=== PATIENT | male | born 1965 | race Caucasian/White ===

== ENCOUNTER 2017-03-24 23:26 | Emergency (ER) | payer MEDICAID ==
[2017-03-24] MEDS ORDERED: Ativan 2 MG/1 ML VIAL ONE (23:40)
[2017-03-24] MEDS ORDERED: Keppra 500 MG/5 ML ONE (23:41)
[2017-03-24] MEDS ORDERED: Sodium Chloride 0.9% 100 ML IVPB 100 ML IV ONE (23:41)
[2017-03-24] MEDS ORDERED: Sodium Chloride 0.9% 1000 ML 1,000 ML IV STA (23:44)
[2017-03-24] MEDS ORDERED: Sodium Chloride 0.9% 1000 ML 1,000 ML ONE (23:49)
[2017-03-24 23:58] LABS: Mean Cell Volume 81.1 fl (78-100); Mean Corpuscular Hemoglobin 24.8 pg (26-32); Platelet Count 472 K/mm3 (150-450); Red Blood Count 5.28 M/mm3 (4.1-5.6); Red Cell Distribution Width 20.7 % (11.5-14.0); White Blood Count 11.2 K/mm3 (4.0-10.5)
--- NOTE | 2017-03-24 23:59 | ERPHSYRPT ---
- History of Present Illness Time Seen by Provider: 03/24/17 23:40 Source: family, EMS Patient Subjective Stated Complaint: PT BROUGHT TO ED PER EMS FROM HOME-HOSPICE PT-EMS REPORTS CALLED TO SCENE FOR SYNCOPAL EPISODE POSSIBLE SEIZURE-EMS ARRIVED TO SCENE WITH PT NOT RESPONDING PT WOKE UP WHEN THEY PICKED HIM UP-PT ALERT X1 FOR EMS Triage Nursing Assessment: PT ARRIVED TO ED CONFUSED-ALERT TO SELF ONLY- FOLLOWING SIMPLE COMMANDS-RESP NONLABORED-JITTERY MOVEMENTS NOTED THROUGHOUT TRIAGE-MOVING ALL EXTREMITIES RESTLESS-PT UNABLE TO ANSWER QUESTIONS FOR TRIAGE Physician History: EMS CALLED TO HOSPICE FOR EVALUATION OF PATIENT WITH STAGE 4 PULMONARY CARCINOMA , PERIPHERAL VASCULAT OCCULSIVE DISEASE, WITH CONFUSION AND SEIZURE LIKE ACTIVITY. NO HISTORY OF COUGH, EMESIS OR DIARRHEA. Timing/Duration: today Severity: severe Character of Deficits: general (difuse) Deficits: decrease ability to stand Baseline/Normal Cognition: poor alertness Current Cognition: poor alertness Associated Symptoms: confusion, slurred speech Home Medications: Atorvastatin Calcium [Lipitor] 20 mg PO DAILY 03/25/17 [History] Duloxetine HCl 30 mg [Cymbalta 30 MG Capsule] 30 mg PO DAILY 03/25/17 [ History] Furosemide 20 mg [Lasix 20 mg] 20 mg PO DAILY 03/25/17 [History] Hydrocodone Bit/Acetaminophen [Hydrocodon-Acetaminophen 5-325] 1 each PO UD 01/06 [History] Magnesium 400 mg PO DAILY 03/25/17 [History] Metoprolol Tartrate 25 mg [Lopressor 25MG Tab] 25 mg PO BID 03/25/17 [ History] Morphine Sulfate Cr 30 mg [Ms Contin 30 mg] 30 mg PO BID 03/25/17 [History ] Pantoprazole 40 mg [Protonix 40 mg IV] 40 mg PO DAILY 03/25/17 [History] Warfarin Sodium 2.5 mg [Coumadin 2.5 MG] 2.5 mg PO DAILY 03/25/17 [History ] Hx Tetanus, Diphtheria Vaccination/Date Given: No Hx Influenza Vaccination/Date Given: No Hx Pneumococcal Vaccination/Date Given: No Immunizations Up to Date: No - Review of Systems Constitutional: Weakness, No Fever, No Chills Eyes: No Symptoms Ears, Nose, & Throat: No Symptoms Respiratory: No Symptoms, No Cough, No Dyspnea Cardiac: No Symptoms, No Chest Pain, No Edema, No Syncope Abdominal/Gastrointestinal: No Symptoms, No Abdominal Pain, No Nausea, No Vomiting, No Diarrhea Genitourinary Symptoms: No Symptoms, No Dysuria Musculoskeletal: No Symptoms, No Back Pain, No Neck Pain Skin: No Rash Neurological: Lethargy, Seizure, Other (CONFUSION), No Dizziness, No Focal Weakness, No Sensory Changes Psychological: No Symptoms Endocrine: No Symptoms All Other Systems: Reviewed and Negative - Past Medical History Pertinent Past Medical History: Yes Respiratory History: Lung Cancer Other Medical History: STAGE 4 LUNG CANCER - Past Surgical History Past Surgical History: No - Social History Smoking Status: Unknown if ever smoked Drug Use: none - Nursing Vital Signs Nursing Vital Signs: Initial Vital Signs Temperature 98.1 F Temperature Source Axillary Pulse Rate 88 Respiratory Rate 18 Blood Pressure [] 117/83 Pain Intensity 0 - Lucía Coma Scale Best Eye Response ([place]): (4) open spontaneously Best Verbal Response (Lucía): (4) confused conversation Best Motor Response (Lucía): (5) localizes to pain Lucía Total: 13 - Physical Exam General Appearance: lethargy, cachetic (MALNOURISHED) Eye Exam: bilateral eye: normal inspection, PERRL, EOMI Ears, Nose, Throat Exam: normal ENT inspection, dry mucous membranes Neck Exam: normal inspection, non-tender, supple Respiratory: normal breath sounds, lungs clear, airway intact, No respiratory distress Cardiovascular: regular rate/rhythm, No edema Gastrointestinal: soft, normal bowel sounds, No tenderness, No distention Back Exam: normal inspection Peripheral Pulses: carotid (R): 2+, carotid (L): 2+, femoral (R): 2+, femoral (L ): 2+, dorsalis-pedis (R): 1+, dorsalis-pedis (L): 1+ Mental Status: lethargy, other (CONFUSED) DTR: bicep (R): 2+, bicep (L): 2+, tricep (R): 2+, tricep (L): 2+, knee (R): 2+ , knee (L): 2+, ankle (R): 2+, ankle (L): 2+ Skin Exam: normal color SpO2 Interpretation: normal SpO2: 97 Oxygen Delivery: Room Air - Course EKG Interpreted by Me: RATE, Sinus Rhythm, Sinus Tach, NORMAL AXIS - Radiology Exams Chest X-ray Interpretation: Interpreted by me (there is a right upper lobe consolidiation vs infiltrase) - CT Exams Head CT Interpretation: Tele-radiologist Report, No/Intracranial Hemorrhag Ordered Tests: Medication Summary Discontinued Medications Generic Name Dose Route Start Last Admin Trade Name Freq PRN Reason Stop Dose Admin Sodium Chloride Confirm 03/24/17 23:41 Sodium Chloride 0.9% 100 Ml Ivpb Administered 03/24/17 23:42 Dose 100 mls @ ud IV .STK-MED ONE Sodium Chloride 1,000 mls @ 999 mls/hr 03/24/17 23:44 03/24/17 23:49 Sodium Chloride 0.9% 1000 Ml IV 03/25/17 00:44 999 mls/hr .Q1H1M STA Administration Sodium Chloride Confirm 03/24/17 23:49 Sodium Chloride 0.9% 1000 Ml Administered 03/24/17 23:50 Dose 1,000 mls @ ud .ROUTE .STK-MED ONE Sodium Chloride Confirm 03/25/17 00:59 Sodium Chloride 0.9% 1000 Ml Administered 03/25/17 01:00 Dose 1,000 mls @ ud .ROUTE .STK-MED ONE Sodium Chloride 1,000 mls @ 500 mls/hr 03/25/17 01:05 03/25/17 01:07 Sodium Chloride 0.9% 1000 Ml IV 03/25/17 03:04 500 mls/hr .Q2H STA Administration Levofloxacin/Dextrose 500 mg in 100 mls @ 100 mls/hr 03/25/17 01:51 03/25/17 01:55 Levofloxacin 500mg/100ml D5w IV 03/25/17 02:50 100 mls/hr STAT STA Administration Levofloxacin/Dextrose Confirm 03/25/17 01:54 Levofloxacin 500mg/100ml D5w Administered 03/25/17 01:55 Dose 500 mg in 100 mls @ ud IV .STK-MED ONE Levetiracetam Confirm 03/24/17 23:41 Keppra 500 Mg/5 Ml Administered 03/24/17 23:42 Dose 500 mg .ROUTE .STK-MED ONE Lorazepam Confirm 03/24/17 23:40 Ativan 2 Mg/1 Ml Vial Administered 03/24/17 23:41 Dose 2 mg .ROUTE .STK-MED ONE Lab/Rad Data: Laboratory Result Diagrams 03/24/17 23:53 03/24/17 23:53 Laboratory Results 03/24/17 03/24/17 03/24/17 Range/Units 23:53 23:53 23:53 WBC 11.2 H (4.0-10.5) K/mm3 RBC 5.28 (4.1-5.6) M/mm3 Hgb 13.1 (12.5-18.0) gm/dl Hct 42.8 (42-50) % MCV 81.1 (78-100) fl MCH 24.8 L (26-32) pg MCHC 30.6 L (32-36) g/dl RDW 20.7 H (11.5-14.0) % Plt Count 472 H (150-450) K/mm3 MPV 9.0 (6-9.5) fl Segmented Neutrophils 64 (36.-66.) % Band Neutrophils 2 (0.0-2.0) % Lymphocytes (Manual) 25 (24-44) % Monocytes (Manual) 6 (0.0-12.0) % Eosinophils (Manual) 1 (0.00-3.0) % Basophils (Manual) 1 (0.0-1.0) % Differential Comment NORMAL Atypical Lymphocytes 1 % Platelet Estimate NORMAL (NORMAL) INR 1.16 (0.8-3.0) Sodium 142 (136-145) mEq/L Potassium 3.5 (3.5-5.1) mEq/L Chloride 97 L (98-107) mEq/L Carbon Dioxide 18.7 L (21-32) mEq/L Anion Gap 29.9 H (5-15) MEQ/L BUN 19 (9-20) mg/dL Creatinine 1.25 (0.55-1.30) mg/dl Estimated GFR > 60 ML/MIN Glucose 92 (70-110) MG/DL Calcium 9.6 (8.5-10.1) mg/dL Magnesium 2.4 (1.8-2.4) mg/dL Total Bilirubin 0.40 (0.2-1.0) mg/dL AST 32 (15-37) U/L ALT 19 (12-78) U/L Alkaline Phosphatase 181 H (46-116) U/L Troponin I (0.000-0.056) ng/ml Serum Total Protein 8.3 H (6.4-8.2) gm/dL Albumin 2.9 L (3.4-5.0) g/dL Urine Opiates Level (NEGATIVE) Ur Methadone (NEGATIVE) Urine Barbiturates (NEGATIVE) Ur Phencyclidine (PCP) (NEGATIVE) Urine Amphetamine (NEGATIVE) U Benzodiazepine Level (NEGATIVE) Urine Cocaine (NEGATIVE) Urine Marijuana (THC) (NEGATIVE) 03/24/17 03/24/17 Range/Units 23:44 00:01 WBC (4.0-10.5) K/mm3 RBC (4.1-5.6) M/mm3 Hgb (12.5-18.0) gm/dl Hct (42-50) % MCV (78-100) fl MCH (26-32) pg MCHC (32-36) g/dl RDW (11.5-14.0) % Plt Count (150-450) K/mm3 MPV (6-9.5) fl Segmented Neutrophils (36.-66.) % Band Neutrophils (0.0-2.0) % Lymphocytes (Manual) (24-44) % Monocytes (Manual) (0.0-12.0) % Eosinophils (Manual) (0.00-3.0) % Basophils (Manual) (0.0-1.0) % Differential Comment Atypical Lymphocytes % Platelet Estimate (NORMAL) INR (0.8-3.0) Sodium (136-145) mEq/L Potassium (3.5-5.1) mEq/L Chloride (98-107) mEq/L Carbon Dioxide (21-32) mEq/L Anion Gap (5-15) MEQ/L BUN (9-20) mg/dL Creatinine (0.55-1.30) mg/dl Estimated GFR ML/MIN Glucose (70-110) MG/DL Calcium (8.5-10.1) mg/dL Magnesium (1.8-2.4) mg/dL Total Bilirubin (0.2-1.0) mg/dL AST (15-37) U/L ALT (12-78) U/L Alkaline Phosphatase (46-116) U/L Troponin I < 0.017 (0.000-0.056) ng/ml Serum Total Protein (6.4-8.2) gm/dL Albumin (3.4-5.0) g/dL Urine Opiates Level POS. (NEGATIVE) Ur Methadone NEG. (NEGATIVE) Urine Barbiturates NEG. (NEGATIVE) Ur Phencyclidine (PCP) NEG. (NEGATIVE) Urine Amphetamine POS. (NEGATIVE) U Benzodiazepine Level NEG. (NEGATIVE) Urine Cocaine NEG. (NEGATIVE) Urine Marijuana (THC) POS. (NEGATIVE) - Progress Progress Note: 03/25/17 00:02 PATIENT HAD WITNESSED SEIZURE TONIC-CLONIC MOVEMENTS, ADMINISTERED IV NORMAL SALINE 1 LITER/HR, ATIVAN 2MG, KEPPRA 500MG IVPB 03/25/17 00:55 DISCUSSED WITH PATIENT'S BROTHER WHO HAS POWER OF ATTORNENEY., AND PATIENT IS A HOSPICE PATIENT WITH A DNR STATES. Discussed with Dr.: Stewart Duque (DISCUSSED WITH DR Abdifatah DUQUE AT 0120 ACCEPTS TRANSFER TO [facility]) - Departure Time of Disposition: 00:45 Departure Disposition: Transfer Clinical Impression: NEW ONSET SEIZURE, MENTAL STATUS CHANGES Condition: Stable Critical Care Time: No Referrals: DOCTOR,NO FAMILY [Primary Care Provider] -
[2017-03-25 00:24] LABS: ALBUMIN 2.9 g/dL (3.4-5.0); ALKALINE PHOSPHATASE 181 U/L (46-116); ANION GAP 29.9 MEQ/L (5-15); BLOOD UREA NITROGEN 19 mg/dL (9-20); CHLORIDE 97 mEq/L (98-107); Carbon Dioxide 18.7 mEq/L (21-32); Glucose 92 MG/DL (70-110); MAGNESIUM 2.4 mg/dL (1.8-2.4); Potassium 3.5 mEq/L (3.5-5.1); SGOT/AST 32 U/L (15-37); SGPT/ALT 19 U/L (12-78); SODIUM 142 mEq/L (136-145); Total Protein 8.3 gm/dL (6.4-8.2)
[2017-03-25 00:50] LABS: INR 1.16 (0.8-3.0); PROTIME 12.9 SECONDS (8.83-12.87)
[2017-03-25] MEDS ORDERED: Sodium Chloride 0.9% 1000 ML 1,000 ML ONE (00:59)
[2017-03-25] MEDS ORDERED: Sodium Chloride 0.9% 1000 ML 1,000 ML IV STA (01:05)
[2017-03-25 01:06] VITALS: BP 117/83; PULSE 88
[2017-03-25 01:09] VITALS: O2SAT 97
[2017-03-25 01:10] LABS: ATYPICAL LYMPHS 1 %; BAND 2 % (0.0-2.0); Basophil 1 % (0.0-1.0); Eosinophil 1 % (0.00-3.0); Platelet Estimate NORMAL (NORMAL); Total Cells Counted 100
[2017-03-25] MEDS ORDERED: Levofloxacin 500MG/100ML D5W 500 MG/100 ML BAG IV STA (01:51)
[2017-03-25] MEDS ORDERED: Levofloxacin 500MG/100ML D5W 500 MG/100 ML BAG IV ONE (01:54)
--- NOTE | 2017-03-25 08:25 | XRAY ---
Indication: Confusion. Seizure. History of cancer. Comparison: None Portable chest hyperinflated with large right upper lung masslike opacity, healing left lower rib fractures, and left-sided Port-A-Cath. Remaining heart, left lung, and bony thorax unremarkable.
--- NOTE | 2017-03-25 08:29 | XRAY ---
Indication: Confusion. Seizure. History of cancer. Multiple contiguous axial images obtained through the head without contrast. Comparison: None Images through the base of the brain slightly degraded by motion artifact even with repeat CT. Age appropriate global atrophy and minimal periventricular degenerative microvascular ischemia bilaterally. No acute intracranial hemorrhage, abnormal extra-axial fluid collection, or mass effect. Fourth ventricle is midline without hydrocephalus. Bony calvarium intact. Visualized paranasal sinuses and mastoid air cells are clear. Impression: Atrophy and degenerative microvascular ischemia within normal limits for patient's age. No acute intracranial abnormalities. Comment: Preliminary interpretation was made by [facility]. No discrepancy. CTDI 51.37
== END 2017-03-25 02:40 | disposition short-term general hospital (02) ==
LOC: ED 23:26
DX: R56.9 Unspecified convulsions (principal); R41.82 Altered mental status, unspecified; R41.0 Disorientation, unspecified; Z79.01 Long term (current) use of anticoagulants; Z79.891 Long term (current) use of opiate analgesic; Z79.899 Other long term (current) drug therapy
CPT/HCPCS: 36000; 36415; 51702; 70450; 71010; 80053; 80307; 83735; 84484; 85025; 85610; 87040; 93005; 96360; 96361; 96365; 96366; 99285; J1953; J1956; J2060